=== PATIENT | female | born 1945 | race Hispanic/Latino ===

== ENCOUNTER 2017-06-07 13:31 | Emergency (ER) | payer MEDICARE ==
[2017-06-07 13:31] VITALS: BMI 29.0
[2017-06-07 13:41] VITALS: TEMP 97.8; O2SAT 97
[2017-06-07] MEDS ORDERED: DiphenhydrAMINE 50 mg/ml Inj IVP STA (13:43)
--- NOTE | 2017-06-07 14:11 | ED PDOC ---
Arrival/HPI - History of Present Illness Time/Duration: 1 hour Symptom Onset: Sudden Symptom Course: Unchanged Quality: Fullness Severity Level: 5 Activities at Onset: Rest Context: Sitting <Minor Dumont - Last Filed: 06/07/17 16:43> - General Historian: Patient <Pedro Parker - Last Filed: 06/07/17 17:26> - General Chief Complaint: Allergic Reaction Time Seen by Provider: 06/07/17 13:36 - History of Present Illness Narrative History of Present Illness (Text): 06/07/17 14:07 This is a 72 year old female with a significant past medical history of hypertension who comes to [facility] complaining of an allergic reaction. Per the patient, she reports sitting at a table when her hands began feeling itchy and burning which then moved to the feet and finally she began having difficulty swallowing. She reports taking Benadryl at home with slight relief in symptoms. Per the patient she contacted her PMD Dr. Granados who advised her to come into the Emergency Room for further treatment. She denies any fevers, chills, nausea, vomiting, chest pain, shortness of breath, stomach pain, syncopal episodes or any other complaints. (Minor Dumont) Past Medical History - Provider Review Nursing Documentation Reviewed: Yes - Infectious Disease Hx of Infectious Diseases: None - Reproductive Menopause: Yes - Cardiac Hx Hypertension: Yes - Neurological Hx Neurological Disorder: (bells palsey) - Integumentary Hx Psoriasis: Yes (left heel) - Musculoskeletal/Rheumatological Hx Falls: No - Gastrointestinal Hx Gastroesophageal Reflux: Yes - Psychiatric Hx Depression: No Hx Emotional Abuse: No Hx Physical Abuse: No Hx Substance Use: No - Surgical History Hx Cardiac Catheterization: Yes Hx Hysterectomy: Yes Other/Comment: vocal cord polyp removed, lower back sx titanium rods implanted L4 L5 S1 2010, 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, 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 - Anesthesia Hx Anesthesia: No - Suicidal Assessment Feels Threatened In Home Enviroment: No <Minor Dumont - Last Filed: 06/07/17 16:43> Family/Social History - Physician Review Nursing Documentation Reviewed: Yes Smoking Status: Heavy Smoker > 10 Cigarettes Daily Hx Alcohol Use: No Hx Substance Use: No <Minor Dumont - Last Filed: 06/07/17 16:43> Family/Social History: No Known Family HX <Pedro Parker - Last Filed: 06/07/17 17:26> Allergies/Home Meds <Minor Dumont - Last Filed: 06/07/17 16:43> <Pedro Parker - Last Filed: 06/07/17 17:26> Allergies/Adverse Reactions: Allergies No Known Allergies Allergy (Verified 07/06/14 14:00) Home Medications: Home Meds Medication Instructions Recorded Confirmed Aspirin [Ecotrin] 81 mg PO DAILY 06/07/17 06/07/17 Metoprolol Tartrate [Lopressor] 100 mg PO DAILY 06/07/17 06/07/17 Review of Systems - Physician Review All systems were reviewed & negative as marked: Yes - Review of Systems Constitutional: Normal. absent: Fevers, Night Sweats Eyes: Normal. absent: Photophobia, Eye Pain ENT: Other (complains of difficulty swallowing). absent: Normal, Hearing Changes, Tinnitus Respiratory: Normal. absent: SOB, Cough, Wheezing Cardiovascular: Normal. absent: Chest Pain, Palpitations Gastrointestinal: Normal. absent: Abdominal Pain, Stool Changes, Constipation, Diarrhea, Nausea, Vomiting Genitourinary Female: Normal. absent: Frequency, Hematuria Skin: Normal. absent: Skin Lesions, Laceration Neurological: Normal. absent: Headache, Dizziness Endocrine: Normal. absent: Polyuria, Polydipsia Hemo/Lymphatic: Normal. absent: Easy Bleeding, Easy Bruising <Minor Dumont - Last Filed: 06/07/17 16:43> Physical Exam Vital Signs Reviewed: Yes Temperature: Afebrile Blood Pressure: Normal Pulse: Regular Respiratory Rate: Normal Appearance: Positive for: Well-Appearing, Non-Toxic, Comfortable Pain Distress: Mild Mental Status: Positive for: Alert and Oriented X 3 - Systems Exam Head: Present: Atraumatic, Normocephalic Pupils: Present: PERRL. No: Non-Reactive Extroacular Muscles: Present: EOMI. No: Gaze Palsy Conjunctiva: Present: Normal. No: Injected Mouth: Present: Moist Mucous Membranes. No: Drooling, Trismus Pharnyx: Present: Normal. No: EXUDATE, Uvular Deviation, Soft Palate/Uvular Edema Neck: Present: Normal Range of Motion. No: JVD, Lymphadenopathy Respiratory/Chest: Present: Clear to Auscultation, Good Air Exchange. No: Respiratory Distress, Accessory Muscle Use, Decreased Breath Sounds Cardiovascular: Present: Regular Rate and Rhythm, Normal S1, S2. No: Murmurs, Tachycardic, Bradycardic Abdomen: Present: Normal Bowel Sounds. No: Tenderness, Distention Upper Extremity: Present: Normal Inspection. No: Swelling, Erythema Lower Extremity: Present: Normal Inspection, Normal ROM. No: Edema, Cyanosis Neurological: Present: CN II-XII Intact, Speech Normal Skin: Present: Dry, Normal Color. No: Rashes, Laceration, Abscess Psychiatric: Present: Alert, Oriented x 3, Normal Insight, Normal Concentration <Minor Dumont - Last Filed: 06/07/17 16:43> Medical Decision Making <Minor Dumont - Last Filed: 06/07/17 16:43> <Pedro Parker - Last Filed: 06/07/17 17:26> ED Course and Treatment: 06/07/17 14:17 Patient was brought to [facility] complaining of an allergic reaction. Patient was given Benadryl, Pepcid and IV steroids. Patient will be re-evaluated afterwards. Patient reports feeling better after the medications. Patient will be monitored further since she initially complained of difficulty swallowing. (Minor Dumont) 06/07/17 15:05 Patient Seen With Resident: In agreement with resident note which contains more details about the patient. Patient was seen and evaluated with resident. Came up with plan and treatment together. 06/07/17 17:22 Patient upon evaluation with no obvious findings, yet symptoms of pruritis and swelling and sensation in throat are very consistent with allergic reaction; no clear source. She was given pepcid, benadryl, and solumedrol, with full resolution of symptoms and observed here in the emergency department. No airway swelling or abnormality was noted in the emergency department with normal clear airway. Will d/c on steroids and atarax, and she said she will follow up with her pmd tomorrow. (Pedro Parker) - Medication Orders Current Medication Orders: Discontinued Medications Diphenhydramine HCl (Benadryl) 25 mg IVP STAT STA Stop: 06/07/17 13:44 Last Admin: 06/07/17 13:58 Dose: 25 mg Famotidine (Pepcid) 20 mg IVP STAT STA Stop: 06/07/17 13:44 Last Admin: 06/07/17 13:58 Dose: 20 mg Methylprednisolone (Solu-Medrol) 125 mg IVP STAT STA Stop: 06/07/17 13:44 Last Admin: 06/07/17 13:58 Dose: 125 mg <Minor Dumont - Last Filed: 06/07/17 16:43> - PA / [employer] / Resident Statement MD/DO has reviewed & agrees with the documentation as recorded. MD/DO has examined the patient and agrees with the treatment plan. - Scribe Statement The provider has reviewed the documentation as recorded by the Scribe <Pedro Parker - Last Filed: 06/07/17 17:26> - Scribe Statement Carolynn De Jesus Provider Scribe Attestation: All medical record entries made by the Scribe were at my direction and personally dictated by me. I have reviewed the chart and agree that the record accurately reflects my personal performance of the history, physical exam, medical decision making, and the department course for this patient. I have also personally directed, reviewed, and agree with the discharge instructions and disposition. (Pedro Parker) Disposition/Present on Arrival - Present on Arrival Any Indicators Present on Arrival: No History of DVT/PE: No History of Uncontrolled Diabetes: No Urinary Catheter: No History of Decub. Ulcer: No History Surgical Site Infection Following: None - Disposition Have Diagnosis and Disposition been Completed?: Yes <Minor Dumont - Last Filed: 06/07/17 16:43> - Present on Arrival Any Indicators Present on Arrival: No - Disposition Have Diagnosis and Disposition been Completed?: Yes Disposition Time: 17:20 Patient Plan: Discharge <Pedro Parker - Last Filed: 06/07/17 17:26> - Disposition Diagnosis: Allergic reaction Disposition: HOME/ ROUTINE Patient Problems: Current Active Problems Problem Status Onset Allergic reaction Acute Condition: GOOD Discharge Instructions (ExitCare): General Allergic Reaction (ED) Additional Instructions: Take the medications as prescribed. The next dose of prednisone is tomorrow morning. Take the atarax every 8 hours; the next dose should be this evening. Follow up with Dr. Rafy Arias and recommend general production worker referral. Return to the emergency department if any new concerning symptoms. Prescriptions: hydrOXYzine HCl [Atarax] 1 tab PO Q8H #16 tab predniSONE [Prednisone] 2 tab PO DAILY #8 tab Referrals: PCP,NO [Primary Care Provider] - Follow up with primary Forms: [facility] (Salvadorean)
[2017-06-07 16:47] VITALS: BP 135/89; PULSE 63; RESP 18
== END 2017-06-07 17:29 | disposition home or self-care (01) ==
LOC: ED 13:31
DX: T78.49XA Other allergy, initial encounter (principal); X58.XXXA Exposure to other specified factors, initial encounter
CPT/HCPCS: 96374; 96375; 99284; J1200; J2930

== ENCOUNTER 2017-07-07 11:34 | Observation (INO) | payer MEDICARE ==
[2017-07-07 11:51] VITALS: BMI 31.8
--- NOTE | 2017-07-07 12:02 | ED PDOC ---
Arrival/HPI - General Historian: Patient - History of Present Illness Time/Duration: < month (3 weeks) Symptom Onset: Gradual Symptom Course: Worsening Quality: Tightness Severity Level: 7 Activities at Onset: Rest Context: Home <Nemo Lund - Last Filed: 07/07/17 13:24> <Pablito Partick - Last Filed: 07/07/17 14:15> - General Chief Complaint: Shortness Of Breath Time Seen by Provider: 07/07/17 11:38 - History of Present Illness Narrative History of Present Illness (Text): 07/07/17 12:10 This is a 72Y F with PMH of HTN and COPD who came to ED for SOB x 3 weeks. The SOB has been worsening the past few days. The patient reports having cough with green sputum and subjective fevers. She denies CP, sore throat, or facial pain, numbness/tingling, vomiting or diarrhea or recent travel. She gets nauseous when she coughs. She was seen by her PMD, Dr. Arias who give her a course of Prednisone 50mg x 3 weeks. He also gave her antibiotics for 2 weeks which include Levaquin and another medication she can't remember. She used Albuterol inhaler which did not provide any relief. The SOB is worse with activity. Her was sick prior to this and she believes she got sick from him. The patient called her PMD who told her to come to the ED. 07/07/17 12:17 (Nemo Lund) Past Medical History - Provider Review Nursing Documentation Reviewed: Yes - Travel History Have you recently traveled outside [place] w/in the past 3 mons?: No - Infectious Disease Hx of Infectious Diseases: None - Cardiac Hx Hypertension: Yes - Pulmonary Hx Chronic Obstructive Pulmonary Disease (COPD): Yes - Neurological Hx Neurological Disorder: (bells palsey) - Integumentary Hx Psoriasis: Yes (left heel) - Musculoskeletal/Rheumatological Hx Falls: No - Gastrointestinal Hx Gastroesophageal Reflux: Yes - Psychiatric Hx Depression: No Hx Emotional Abuse: No Hx Physical Abuse: No Hx Substance Use: No - Surgical History Hx Cardiac Catheterization: Yes Hx Hysterectomy: Yes Other/Comment: vocal cord polyp removed, lower back sx titanium rods implanted L4 L5 S1 2010, 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 denies: Blood Clots, Neoplasm/Cancer Smoking Status: Heavy Smoker > 10 Cigarettes Daily Hx Alcohol Use: No Hx Substance Use: No <BenNemo rowe - Last Filed: 07/07/17 13:24> Allergies/Home Meds <Nemo Lund - Last Filed: 07/07/17 13:24> <Pablito Patrick - Last Filed: 07/07/17 14:15> Allergies/Adverse Reactions: Allergies No Known Allergies Allergy (Verified 07/06/14 14:00) Home Medications: Home Meds Medication Instructions Recorded Confirmed Aspirin [Ecotrin] 81 mg PO DAILY 06/07/17 07/07/17 Metoprolol Tartrate [Lopressor] 100 mg PO DAILY 06/07/17 07/07/17 Albuterol 0.083% [Albuterol 0.083% 1 vial IH Q4H PRN 07/07/17 07/07/17 Inhal Rakel (2.5 mg/3 ml) UD] Review of Systems - Physician Review All systems were reviewed & negative as marked: Yes - Review of Systems Constitutional: Fevers Eyes: Normal. absent: Vision Changes ENT: Normal. absent: Hearing Changes Respiratory: SOB, Cough, Sputum (greeb), Wheezing Cardiovascular: Normal. absent: Chest Pain, Palpitations, Edema Gastrointestinal: Nausea (when coughing ). absent: Abdominal Pain, Diarrhea, Vomiting Genitourinary Female: Normal. absent: Dysuria, Frequency Musculoskeletal: Normal. absent: Arthralgias Skin: Normal Neurological: Normal. absent: Headache, Dizziness Psychiatric: Normal. absent: Anxiety, Depression <Nemo Lund - Last Filed: 07/07/17 13:24> Physical Exam Vital Signs Reviewed: Yes Temperature: Afebrile Blood Pressure: Normal Pulse: Regular Respiratory Rate: Tachypneic Appearance: Positive for: Well-Appearing, Non-Toxic, Comfortable Pain Distress: None Mental Status: Positive for: Alert and Oriented X 3 - Systems Exam Head: Present: Atraumatic, Normocephalic Pupils: Present: PERRL Extroacular Muscles: Present: EOMI Conjunctiva: Present: Normal Mouth: Present: Moist Mucous Membranes Neck: Present: Normal Range of Motion Respiratory/Chest: Present: Good Air Exchange, Wheezes (diffuse). No: Respiratory Distress, Accessory Muscle Use Cardiovascular: Present: Regular Rate and Rhythm, Normal S1, S2. No: Murmurs Abdomen: Present: Normal Bowel Sounds. No: Tenderness, Distention, Peritoneal Signs Back: Present: Normal Inspection Upper Extremity: Present: Normal Inspection. No: Cyanosis, Edema Lower Extremity: Present: Normal Inspection. No: Edema Neurological: Present: GCS=15, CN II-XII Intact, Speech Normal Skin: Present: Warm, Dry, Normal Color. No: Rashes Psychiatric: Present: Alert, Oriented x 3, Normal Insight, Normal Concentration <Nemo Lund - Last Filed: 07/07/17 13:24> <Pablito Patrick - Last Filed: 07/07/17 14:15> Vital Signs Temp Pulse Resp BP Pulse Ox 07/07/17 12:08 24 95 07/07/17 11:54 98.2 F 82 22 123/68 95 Medical Decision Making Re-evaluation Time: 12:53 Reassessment Condition: Improved - Lab Interpretations I have reviewed the lab results: Yes Interpretation: All labs normal <Nemo Lund - Last Filed: 07/07/17 13:24> <Pablito Patrick T - Last Filed: 07/07/17 14:15> ED Course and Treatment: 07/07/17 12:16 Impression: This is a 72Y F with PMH of HTN and COPD who came to ED for SOB x 3 weeks. Differential Diagnosis included but are not limited to: COPD exacerbation v. pneumonia Plan: - EKG - CXR - Duoneb - Solumedrol - Reassess and disposition EKG: Ordered, reviewed, and independently interpreted the EKG. Rate : 81 BPM Rhythm : NSR Interpretation : No ST-segment elevations or depressions, no T-wave inversions, normal intervals. Comparison : Similar to previous EKG Progress Note: 07/07/17 12:54 Patient reports feeling better, but still has cough and wheezing. Labs are within normal limits. CXR showed no active disease. Called PMD, Dr. Arias for admission. Awaiting call back. 07/07/17 13:[address] Arias who accepted the patient into his service. Discussed results and plan to admit with patient who expresses understanding. All questions answered and there is agreement with the plan. (Nemo Lund) 07/07/17 13:12 Patient Seen With Resident: In agreement with resident note which contains more details about the patient. Patient was seen and evaluated with resident. Came up with plan and treatment together. 72 y/o F p/w shortness of breath. Wheezing on exam. (Pablito Patrick) - Lab Interpretations Lab Results: 07/07/17 12:04 07/07/17 12:04 Lab Results 07/07/17 12:04: Sodium 144, Potassium 4.1, Chloride 109 H, Carbon Dioxide 25, Anion Gap 14, BUN 16, Creatinine 0.6, Est GFR ( Amer) > 60, Est GFR (Non- Af Amer) > 60, Random Glucose 92, Calcium 9.0, Total Bilirubin 0.6, AST 23, ALT 29, Alkaline Phosphatase 100, Total Protein 6.4, Albumin 3.8, Globulin 2.6, Albumin/Globulin Ratio 1.5 07/07/17 12:04: WBC 8.8 D, RBC 4.91, Hgb 14.9, Hct 43.6, MCV 88.8, MCH 30.3, MCHC 34.2, RDW 13.5, Plt Count 290, MPV 9.1, Gran % 85.2 H, Lymph % (Auto) 8.4 L , Stevens % (Auto) 5.1, Eos % (Auto) 1.1 L, Baso % (Auto) 0.2, Gran # 7.47 H, Lymph # 0.7 L, Stevens # 0.5, Eos # 0.1, Baso # 0.02 - RAD Interpretation Radiology Orders: 07/07/17 11:55 CHEST TWO VIEWS (PA/LAT) [RAD] Stat - Medication Orders Current Medication Orders: Albuterol/Ipratropium (Duoneb 3 Mg/0.5 Mg (3 Ml) Ud) 3 ml IH Q2H PRN PRN Reason: Shortness of Breath Stop: 07/07/17 17:46 Albuterol/Ipratropium (Duoneb 3 Mg/0.5 Mg (3 Ml) Ud) 3 ml IH Q4H JOSEPH Budesonide (Pulmicort Respules) 0.25 mg IH [id number] JOSEPH Doxycycline Hyclate (Doryx) 100 mg PO BID JOSEPH PRN Reason: Protocol Methylprednisolone (Solu-Medrol) 60 mg IVP Q12 JOSEPH Metoprolol Succinate (Toprol Xl) 100 mg PO BRK JOSEPH Discontinued Medications Albuterol/Ipratropium (Duoneb 3 Mg/0.5 Mg (3 Ml) Ud) 3 ml IH Q15M JOSEPH Stop: 07/07/17 12:31 Last Admin: 07/07/17 13:34 Dose: 3 ml Methylprednisolone (Solu-Medrol) 125 mg IVP STAT STA Stop: 07/07/17 11:56 Last Admin: 07/07/17 12:07 Dose: 125 mg Methylprednisolone (Solu-Medrol) Confirm Administered Dose 125 mg .ROUTE .STK- MED ONE Stop: 07/07/17 12:04 Last Admin: 07/07/17 12:07 Dose: <Nemo Lund - Last Filed: 07/07/17 13:24> - Scribe Statement The provider has reviewed the documentation as recorded by the Scribe <Pablito Patrick - Last Filed: 07/07/17 14:15> - Scribe Statement Carolynn De Jesus Provider Scribe Attestation: All medical record entries made by the Scribe were at my direction and personally dictated by me. I have reviewed the chart and agree that the record accurately reflects my personal performance of the history, physical exam, medical decision making, and the department course for this patient. I have also personally directed, reviewed, and agree with the discharge instructions and disposition. (Pablito Patrick) Disposition/Present on Arrival - Present on Arrival Any Indicators Present on Arrival: No History of DVT/PE: No History of Uncontrolled Diabetes: No Urinary Catheter: No History of Decub. Ulcer: No History Surgical Site Infection Following: None - Disposition Have Diagnosis and Disposition been Completed?: Yes Disposition Time: 12:54 Patient Plan: Admission <Nemo Lund - Last Filed: 07/07/17 13:24> <Pablito Patrick - Last Filed: 07/07/17 14:15> - Disposition Diagnosis: COPD exacerbation Patient Problems: Current Active Problems Problem Status Onset COPD exacerbation Acute Condition: FAIR
[2017-07-07 12:28] LABS: ALB/GLOB RATIO 1.5 (1.1-1.8); ALKALINE PHOSPHATASE 100 U/L (38-126); ALT/SGPT 29 U/L (7-56); AST/SGOT 23 U/L (14-36); BASO # 0.02 K/mm3 (0.0-2.0); BASO % 0.2 % (0.0-3.0); BILIRUBIN,TOTAL 0.6 mg/dL (0.2-1.3); BLOOD UREA NITROGEN 16 mg/dL (7-21); CARBON DIOXIDE 25 mmol/L (21-33); CHLORIDE 109 mmol/L (98-107); EOS # 0.1 (0.0-0.7); EOS % 1.1 % (1.5-5.0); GFR AFRICAN-AMERICAN > 60; GLUCOSE,RANDOM 92 mg/dL (70-110); GRAN # 7.47 (1.4-6.5); GRAN % 85.2 % (50.0-68.0); HEMATOCRIT 43.6 % (36.0-48.0); LYMPH # 0.7 (1.2-3.4); LYMPH % 8.4 % (22.0-35.0); MEAN CELL VOLUME 88.8 fl (80.0-105.0); MEAN CORPUSCULAR HEMOGLOBIN 30.3 pg (25.0-35.0); MEAN CORPUSCULAR HGB CONC 34.2 g/dl (31.0-37.0); MEAN PLATELET VOLUME 9.1 fl (7.0-11.0); MONO # 0.5 (0.1-0.6); MONO % 5.1 % (1.0-6.0); POTASSIUM 4.1 mmol/L (3.6-5.0); RED CELL DISTRIBUTION WIDTH 13.5 % (11.5-14.5); SODIUM 144 mmol/L (132-148); TOTAL PROTEIN 6.4 g/dL (5.8-8.3); WHITE BLOOD COUNT 8.8 10^3/ul (4.5-11.0)
[2017-07-07] MEDS: Albuterol-Ipratrop 3 mg / 0.5 (3 ml) UD IH SCH ×5 (12:36→19:49)
--- NOTE | 2017-07-07 13:15 | RAD ---
HISTORY: SOB COMPARISON: 07/06/2014 TECHNIQUE: Chest PA and lateral FINDINGS: LUNGS: No active pulmonary disease. PLEURA: No significant pleural effusion identified. No pneumothorax apparent. CARDIOVASCULAR: Normal. OSSEOUS STRUCTURES: No significant abnormalities. VISUALIZED UPPER ABDOMEN: Normal. OTHER FINDINGS: None. IMPRESSION: No active disease.
[2017-07-07] MEDS ORDERED: Albuterol-Ipratrop 3 mg / 0.5 (3 ml) UD IH PRN (13:32)
[2017-07-07] MEDS ORDERED: Pneumococcal 23-Valent Vaccine IM ONE (18:55)
[2017-07-07] MEDS ORDERED: Budesonide 0.25 mg/2 ml Inhal Susp UD IH SCH (20:00)
[2017-07-08] MEDS: Albuterol-Ipratrop 3 mg / 0.5 (3 ml) UD IH SCH ×6 (00:25→20:18)
[2017-07-08] MEDS: Pantoprazole 40 mg EC Tab PO SCH (05:36)
[2017-07-08 07:28] LABS: BASO # 0.01 K/mm3 (0.0-2.0); BASO % 0.1 % (0.0-3.0); GRAN # 13.09 (1.4-6.5); GRAN % 90.8 % (50.0-68.0); HEMATOCRIT 40.7 % (36.0-48.0); LYMPH # 0.9 (1.2-3.4); LYMPH % 6.2 % (22.0-35.0); MEAN CELL VOLUME 88.3 fl (80.0-105.0); MEAN CORPUSCULAR HEMOGLOBIN 29.5 pg (25.0-35.0); MEAN CORPUSCULAR HGB CONC 33.4 g/dl (31.0-37.0); MEAN PLATELET VOLUME 9.2 fl (7.0-11.0); MONO # 0.4 (0.1-0.6); MONO % 2.9 % (1.0-6.0); PLATELET COUNT 273 10^3/uL (120.0-450.0); RED CELL DISTRIBUTION WIDTH 13.7 % (11.5-14.5); WHITE BLOOD COUNT 14.4 10^3/ul (4.5-11.0)
[2017-07-08 07:42] LABS: ALB/GLOB RATIO 1.3 (1.1-1.8); ALKALINE PHOSPHATASE 84 U/L (38-126); ALT/SGPT 27 U/L (7-56); AST/SGOT 21 U/L (14-36); BILIRUBIN,TOTAL 0.6 mg/dL (0.2-1.3); CALCIUM 9.2 mg/dL (8.4-10.5); CARBON DIOXIDE 23 mmol/L (21-33); CHLORIDE 106 mmol/L (95-110); GFR AFRICAN-AMERICAN > 60; GLUCOSE,RANDOM 182 mg/dL (70-110); POTASSIUM 4.3 mmol/L (3.6-5.0); SODIUM 139 mmol/L (132-148); TOTAL PROTEIN 6.3 g/dL (5.8-8.3)
[2017-07-08] MEDS: Budesonide 0.5 mg/2 ml Inhal Susp UD IH SCH ×2 (07:57→20:18)
[2017-07-08] MEDS ORDERED: Metoprolol Succinate 100 mg XL Tab PO SCH (08:00)
[2017-07-08 08:10] LABS: BLOOD UREA NITROGEN 22 mg/dL (7-21)
--- NOTE | 2017-07-08 08:57 | CARD ---
APPROVED REPORT EKG Measurement Heart [id number] <Conclusion> Normal sinus rhythm
[2017-07-08] MEDS: MethylPREDNISolone 40 mg Vial IVP SCH ×2 (10:49→21:35)
[2017-07-08 10:51] LABS: NEUTROPHIL 93 % (50.0-70.0); PLATELET ESTIMATE NORMAL (NORMAL)
--- NOTE | 2017-07-08 11:56 | PN ---
DATE: SUBJECTIVE: The patient is sitting up in bed, having breakfast. She states her shortness of breath has improved overnight. There have been no acute events overnight. PHYSICAL EXAMINATION: VITAL SIGNS: Temperature of 98.4, pulse rate of 84, blood pressure 129/73, respiratory rate of 22 with an O2 saturation of 95% on room air. HEENT: Unremarkable. NECK: Supple. There is no jugular venous distention or adenopathy. No bruits are present. LUNGS: Scattered rhonchi, very mild throughout both lung prince with a slight wheeze. HEART: Regular rate and rhythm. No murmurs, rubs, or gallops. ABDOMEN: Benign. EXTREMITIES: Show no deformities or edema. NEUROLOGIC: There are no focal motor deficits. LABORATORY DATA: This morning; WBC of 14.4 that is most likely steroid effect. There is a left shift. SMA-23 with the exception of BUN of 22 and random glucose of 182 is unremarkable. CURRENT DIAGNOSES: 1. Acute exacerbation of chronic obstructive pulmonary disease. 2. Hypertension. PLAN: Continue current regimen. Jj Arias MD
--- NOTE | 2017-07-08 16:46 | CON ---
DATE: 07/08/2017 PULMONARY CONSULTATION REASON FOR CONSULTATION: Chronic obstructive pulmonary disease. REFERRING PHYSICIAN: Alexis Arias MD HISTORY OF PRESENT ILLNESS: The patient is a 72-year-old female, with past medical history significant for chronic obstructive pulmonary disease, positive extensive smoking history - still smokes, hypertension, who presents to [facility] with worsening shortness of breath at rest, dyspnea on exertion, cough, and sputum production for the past three days. There is no history of chest pain, coughing up of blood, or chest pain - made worse with deep respirations. There is no history of temperatures or chills. There is a history of infectious exposure (). No history of night sweats, weight loss or appetite change prior to the above events. No history of leg or calf pains. No history of syncope or diaphoresis. No history of recent travel or trauma. REVIEW OF SYSTEMS: No history of nausea, vomiting or diarrhea. No acute urinary symptoms. No new neurologic or musculoskeletal complaints. Rest of the review of systems is negative. ALLERGIES: NO KNOWN ALLERGIES. SOCIAL HISTORY: Positive for extensive tobacco usage - still smokes, no alcohol. FAMILY HISTORY: No inheritable diseases. HOME MEDICATIONS: Include prednisone, Atarax, Lopressor, Ecotrin, and albuterol nebulizer treatments. PHYSICAL EXAMINATION: GENERAL: The patient is not short of breath at rest. She is not using accessory muscles for breathing. VITAL SIGNS: Temperature is 97.7, pulse 86, respiration is 18/20, and blood pressure 123/61. Oxygen saturation on room air is 95%. HEENT: Normocephalic and atraumatic. No JVD. CARDIOVASCULAR: Positive S1 and S2. No S3 gallop. LUNGS: Decreased breath sounds at the bases. Mild rhonchi and wheezing bilaterally. EXTREMITIES: No clubbing, cyanosis or edema. Calves are nontender to palpation. GASTROINTESTINAL: Abdomen is soft, nontender, nondistended. Bowel sounds are positive. SKIN: No acute rash. NEUROLOGIC: Limited at the present time. PERTINENT LABORATORY DATA: Chest x-ray was done yesterday and reviewed. There is no active disease present. CBC: White count 8.8K, hemoglobin 14.9, hematocrit 43.6, and platelets of 290. Complete metabolic profile: Chloride 109. Rest of the metabolic profile is within normal limits. IMPRESSION: 1. Acute bronchitis. 2. Acute bronchospasm. 3. Chronic obstructive pulmonary disease. 4. Hypertension. PLAN: The patient presents to [facility] with a 3-day history of worsening pulmonary symptoms. The patient actually states that the symptoms have been going "on and off" for the past three weeks, but got much worse over the past three days. She was presented to [facility] for admission. I did review the chest x-ray as above. There is no active disease present. On physical exam, the patient is in [id number] bronchospasm. I will continue with the current DuoNeb treatments and increase the inhaled Pulmicort. The patient does feel significantly better this morning. Thus,I will also try decreasing the intravenous steroids this morning. The patient also remains on oral antibiotic therapy. There are no temperatures noted. There is no leukocytosis. Again, the clinical status of this patient is improved this morning. Additional pulmonary intervention will be based on the clinical status of the patient. I will discuss the above with Dr. Arias this morning. I also discussed the patient's smoking with her at length. Thank you very much for this pulmonary consultation. Praneeth Richards MD MTDDaphney
[2017-07-08 17:49] VITALS: RESP 20
[2017-07-08] MEDS ORDERED: Benzocaine/Menthol (Cepacol) Lozenge MT PRN (18:14)
[2017-07-09] MEDS: Albuterol-Ipratrop 3 mg / 0.5 (3 ml) UD IH SCH ×2 (01:04→07:42)
[2017-07-09] MEDS: Pantoprazole 40 mg EC Tab PO SCH (05:31)
--- NOTE | 2017-07-09 07:19 | PN ---
SUBJECTIVE: The patient appears comfortable this morning. She is not short of breath at rest. PHYSICAL EXAMINATION VITAL SIGNS: Temperature 98.3, pulse 78, respirations 18, blood pressure 154/70. Oxygen saturation on room air is 95%. HEENT: Normocephalic and atraumatic. NECK: No JVD. CARDIOVASCULAR: Positive S1 and S2. No S3. LUNGS: Improved breath sounds at the bases. Much less rhonchi and wheezing bilaterally. EXTREMITIES: No clubbing, cyanosis, or edema. Calves are nontender to palpation. GASTROINTESTINAL: Abdomen is soft, nontender, and nondistended. Bowel sounds are positive. SKIN: No acute rash. NEUROLOGIC: Limited at the present time. IMPRESSION: 1. Acute bronchitis. 2. Acute bronchospasm. 3. Chronic obstructive pulmonary disease. 4. Hypertension. PLAN: The patient appears comfortable this morning. She is not short of breath at rest. Her cough is less. She does state that she is feeling much better overall. On physical exam, her bronchospasm is significantly less. In addition, the oxygen saturation on room air is now 95-96%. I will continue with the current nebulizer treatments and decrease the intravenous steroids this morning. The patient remains on antibiotic therapy. There are no temperatures noted. There is a mild leukocytosis (noted on the last labs)--most likely secondary to the steroids. The initial white count was normal. Clinical status of the patient is significantly improved. I will discuss the above with the attending physician. Praneeth Richards MD MTDD
[2017-07-09] MEDS: Budesonide 0.5 mg/2 ml Inhal Susp UD IH SCH (07:42)
[2017-07-09 09:11] VITALS: BP 137/72; PULSE 63; TEMP 97.7; O2SAT 95
[2017-07-09] MEDS ORDERED: MethylPREDNISolone 40 mg Vial IVP SCH (10:00)
--- NOTE | 2017-07-11 08:36 | PN ---
SUBJECTIVE: The patient was seen and examined at bedside on the general medical ortez. No acute events overnight. She remains afebrile and hemodynamically stable. The patient reports resolution of her pulmonary symptoms associated with her presentation to the emergency department with a COPD exacerbation. This morning she states she feels great, denies chest tightness, dyspnea or wheeze and states that she is ambulating around the medical ortez without difficulty. Furthermore she states that she would like to go home. OBJECTIVE: VITAL SIGNS: Temperature 98.3, pulse 78, blood pressure 154/70, respiratory rate 20, and oxygen saturation 95% on room air. GENERAL: No apparent distress. HEENT: PERRL. EOMI. No scleral icterus. No conjunctival pallor. NECK: No JVD. No bruits. LUNGS: Clear to auscultation. CARDIOVASCULAR: Regular rate and rhythm. Normal S1 and S2. ABDOMEN: Normoactive bowel sounds. Soft, nontender, and nondistended. EXTREMITIES: No edema. NEUROLOGIC: Awake, alert, and oriented x3. No focal motor deficits. LABORATORY DATA: Morning labs are pending. ASSESSMENT: The patient is a 72-year-old woman with past medical history of COPD, tobacco dependence and HTN who presented to [facility] for continued management of COPD exacerbation whose symptoms have presently resolved. PLAN: 1. COPD exacerbation, resolved. Input from Dr. Richards of pulmonary critical care medicine noted and appreciated. The patient has demonstrated significant improvement in her respiratory symptoms since admission and this morning reports being at her baseline. We will discharge the patient to home and will complete a steroid taper as well as a 7-day course of antibiotics. 2. Hypertension. Blood pressure controlled. Continue with Toprol-XL 100 mg p.o. daily. 3. Prophylaxis. Continue with Protonix for GI prophylaxis, DVT prophylaxis not indicated, as the patient is eating. 4. Disposition. The patient for discharge to home today. CODE STATUS: Full code. Alexis Arias MD ABILIO
--- NOTE | 2017-07-12 05:33 | DS ---
DATE OF ADMISSION: 07/07/2017 DATE OF DISCHARGE: 07/09/2017 ADMITTING DIAGNOSIS: Chronic obstructive pulmonary disease exacerbation. DISCHARGE DIAGNOSIS: Chronic obstructive pulmonary disease exacerbation (resolved). SECONDARY DIAGNOSES: Hypertension and tobacco dependence. CONSULTATIONS: Dr. Praneeth Richards (Pulmonary and Critical Care Medicine). IMAGING STUDIES: Chest x-ray, which demonstrated no acute pathology. HISTORY OF PRESENT ILLNESS: The patient is a 72-year-old woman with past medical history of COPD with active tobacco dependence and hypertension, who presented to [facility] for evaluation of a 2-week history of worsening dyspnea, wheeze, and malaise. The patient was initially seen in her PMD's office for approximately 2 weeks ago for evaluation of the aforementioned symptoms. She was diagnosed with bronchitis and given a prescription for Levaquin 500 mg p.o. daily x7 days and Prednisone 50 mg p.o. daily x7 days. The patient completed her course of antibiotics and steroids with minimal improvement in her symptoms. Upon reexamination, she was advised that she may likely require inpatient treatment; however, initially she declined and as such she was prescribed a second course of antibiotics consisting of azithromycin 500 mg p.o. daily and Prednisone 50 mg p.o. daily both for 7 days. The patient went to fill her prescriptions, but later that day she developed increased dyspnea with increased work of breathing and as such adapted for evaluation in the emergency department. HOSPITAL COURSE: After evaluation in the emergency department, the patient was admitted to the general medical ortez, where she was maintained on Solu-Medrol 60 mg IV q. 12 hours and doxycycline 100 mg p.o. b.i.d. Over the following 24 to 36 hours, she was noted to have significant improvement in her respiratory symptoms and on reexamination she was noted to be at her baseline respiratory status. She was ambulating around the medical ortez without difficulty. Her steroids were tapered for an additional day and on reassessment she was noted to demonstrate continued improvement and at this point in time, she was deemed stable for discharge to home. CONDITION: Good, improved. DISPOSITION: Home. DISCHARGE MEDICATIONS: Toprol XL 100 mg p.o. daily, Advair 250/50 mcg one puff q. 12 hours, Prednisone 50 mg p.o. daily times 7 days, and azithromycin 500 mg p.o. daily times 7 days. DISCHARGE INSTRUCTIONS: The patient was advised that she is in recurrence of her symptoms to present to her PMD or to the nearest emergency department immediately. FOLLOWUP: The patient is to follow up with her PMD within one week of discharge. The patient will follow up with Dr. Richards of pulmonary and critical care medicine as scheduled. Alexis Arias MD
== END 2017-07-09 12:22 | disposition home or self-care (01) ==
LOC: ED 11:34 → ERH 13:22 → 3RNO 15:17
PROVIDERS: ADMIT Student in an Organized Health Care Education/Training Program; ATTEND Student in an Organized Health Care Education/Training Program
DX: J44.0 Chronic obstructive pulmonary disease with (acute) lower respiratory infection (principal); J44.1 Chronic obstructive pulmonary disease with (acute) exacerbation; J20.9 Acute bronchitis, unspecified; I10 Essential (primary) hypertension; F17.200 Nicotine dependence, unspecified, uncomplicated; K21.9 Gastro-esophageal reflux disease without esophagitis; Z79.82 Long term (current) use of aspirin; Z79.899 Other long term (current) drug therapy; Z85.828 Personal history of other malignant neoplasm of skin; Z90.710 Acquired absence of both cervix and uterus; L40.9 Psoriasis, unspecified; R40.2412 Glasgow coma scale score 13-15, at arrival to emergency department; D72.828 Other elevated white blood cell count; T38.0X5A Adverse effect of glucocorticoids and synthetic analogues, initial encounter
CPT/HCPCS: 36415; 71020; 80053; 85025; 93005; 94640; 96374; 99284; G0378; J2920; J2930

== ENCOUNTER 2018-03-29 19:13 | Emergency (ER) | payer MEDICARE ==
[2018-03-29] MEDS ORDERED: DiphenhydrAMINE 50 mg/ml Inj IVP ONE (19:16)
[2018-03-29 19:17] VITALS: BMI 32.8
[2018-03-29] MEDS ORDERED: Albuterol-Ipratrop 3 mg / 0.5 (3 ml) UD IH STA (19:17)
[2018-03-29] MEDS ORDERED: Famotidine 20mg/50ml 20 MG/50 ML BAG IVPB STA (19:17)
[2018-03-29 19:26] VITALS: O2SAT 97
[2018-03-29 20:07] VITALS: BP 158/81; PULSE 81; RESP 20
--- NOTE | 2018-03-29 21:21 | ED PDOC ---
Arrival/HPI - General Chief Complaint: Allergic Reaction Time Seen by Provider: 03/29/18 19:16 Historian: Patient - History of Present Illness Narrative History of Present Illness (Text): 03/29/18 19:15 Karina Patricia is a 73 year old female, whose past medical history includes COPD and hypertension, who presents to the Emergency department complaining of an allergic reaction prior to arrival. Patient states she began experiencing tongue swelling, throat swelling, some shortness of breath, and diffuse pruritus prior to arrival. Patient is unsure what triggered the reaction. Patient denies any fever, chills, chest pain, nausea, vomiting, diarrhea, urinary symptoms, back pain, neck pain, headache, dizziness, or any other complaints. Symptom Onset: Gradual Symptom Course: Unchanged Activities at Onset: Light Context: Home Past Medical History - Provider Review Nursing Documentation Reviewed: Yes - Infectious Disease Hx of Infectious Diseases: None - Cardiac Hx Hypertension: Yes - Pulmonary Hx Chronic Obstructive Pulmonary Disease (COPD): Yes - Neurological Hx Neurological Disorder: (bells palsey) Hx Dizziness: Yes (vertigo dx last summer) - HEENT Hx HEENT Disorder: Yes Other/Comment: vocal cord polyp removed - Hematological/Oncological Hx Cancer: Yes (skin ca) - Integumentary Hx Basal Cell Carcinoma: Yes (arms/legs/shoulder) Hx Psoriasis: Yes (feet/season changes) Hx Squamous Cell Carcinoma: Yes (chest removed) - Musculoskeletal/Rheumatological Hx Falls: No - Gastrointestinal Hx Gastroesophageal Reflux: Yes - Psychiatric Hx Depression: No Hx Emotional Abuse: No Hx Physical Abuse: No Hx Substance Use: No - Surgical History Hx Cardiac Catheterization: Yes Hx Hysterectomy: Yes Other/Comment: vocal cord polyp removed, lower back sx titanium rods implanted L4 L5 S1 2010, 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, 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 - Anesthesia Hx Anesthesia: Yes Hx Anesthesia Reactions: No Hx Malignant Hyperthermia: No - Suicidal Assessment Feels Threatened In Home Enviroment: No Family/Social History - Physician Review Nursing Documentation Reviewed: Yes Family/Social History: Unknown Family HX Smoking Status: Light Smoker < 10 Cigarettes Daily Hx Alcohol Use: No Hx Substance Use: No Allergies/Home Meds Allergies/Adverse Reactions: Allergies No Known Allergies Allergy (Verified 07/06/14 14:00) Home Medications: Home Meds Medication Instructions Recorded Confirmed Aspirin [Ecotrin] 81 mg PO DAILY 06/07/17 07/07/17 Metoprolol Tartrate [Lopressor] 100 mg PO DAILY 06/07/17 07/07/17 Albuterol 0.083% [Albuterol 0.083% 1 vial IH Q4H PRN 07/07/17 07/07/17 Inhal Rakel (2.5 mg/3 ml) UD] Review of Systems - Physician Review All systems were reviewed & negative as marked: Yes - Review of Systems Constitutional: Normal. absent: Fevers Eyes: Normal ENT: Other (+tongue swelling) Respiratory: SOB. absent: Cough Cardiovascular: Normal. absent: Chest Pain Gastrointestinal: Normal. absent: Abdominal Pain, Nausea, Vomiting Genitourinary Female: Normal. absent: Dysuria, Frequency, Hematuria, Urine Output Changes Musculoskeletal: Normal. absent: Back Pain, Neck Pain Skin: Normal. absent: Rash Neurological: Normal. absent: Headache, Dizziness Endocrine: Normal Hemo/Lymphatic: Normal Psychiatric: Normal Physical Exam Vital Signs Reviewed: Yes Vital Signs Pulse Resp BP Pulse Ox 03/29/18 21:35 97 03/29/18 20:06 81 20 158/81 H 97 03/29/18 19:26 77 22 209/108 H 97 Temperature: Afebrile Blood Pressure: Hypertensive Pulse: Regular Respiratory Rate: Normal Appearance: Positive for: Well-Appearing, Non-Toxic, Comfortable Pain Distress: None Mental Status: Positive for: Alert and Oriented X 3 - Systems Exam Head: Present: Atraumatic, Normocephalic Pupils: Present: PERRL Extroacular Muscles: Present: EOMI Conjunctiva: Present: Normal Ears: Present: Normal, NORMAL TM, Normal Canal. No: Erythema, TM Bulging, Fluid , TM Perf Mouth: No: Normal Tounge (Swollen tongue) Pharnyx: Present: Normal. No: ERYTHEMA, EXUDATE, TONSILS ENLARGED, Peritonsilar Swelling, Uvular Deviation, Muffled/Hoarse Voice, Strider, Soft Palate/Uvular Edema Nose (External): Present: Atraumatic Nose (Internal): Present: Normal Inspection Neck: Present: Normal Range of Motion Respiratory/Chest: Present: Clear to Auscultation, Good Air Exchange. No: Respiratory Distress, Accessory Muscle Use Cardiovascular: Present: Regular Rate and Rhythm, Normal S1, S2. No: Murmurs Abdomen: No: Tenderness, Distention, Peritoneal Signs Back: Present: Normal Inspection. No: CVA Tenderness, Midline Tenderness, Paraspinal Tenderness Upper Extremity: Present: Normal Inspection. No: Cyanosis, Edema Lower Extremity: Present: Normal Inspection. No: Edema Neurological: Present: GCS=15, CN II-XII Intact, Speech Normal Skin: Present: Warm, Dry, Rashes, Normal Color Psychiatric: Present: Alert, Oriented x 3, Normal Insight, Normal Concentration Medical Decision Making ED Course and Treatment: 03/29/18 19:15 Impression: 73 year old female complaining of an allergic reaction with tongue swelling, throat swelling, and shortness of breath. Differential Diagnosis included but are not limited to: allergic reaction Plan: -- Benadryl -- Duoneb -- Pepcid -- Solu-medrol -- Reassess and disposition Prior Visits: Notes and results from previous visits were reviewed. Progress Notes: 03/29/18 21:35 On re-evaluation, patient feels better and is in no acute distress. I have discussed the results and plan with the patient, who expresses understanding. Patient in agreement with plan to be discharged home. Patient is stable for discharge. Patient was instructed to follow up with physician/clinic in 1-2 days or return if symptoms worsen or new concerning symptoms arise. - Medication Orders Current Medication Orders: Discontinued Medications Albuterol/Ipratropium (Duoneb 3 Mg/0.5 Mg (3 Ml) Ud) 3 ml IH STAT STA Stop: 03/29/18 19:18 Last Admin: 03/29/18 19:17 Dose: 3 ml Diphenhydramine HCl (Benadryl) 25 mg IVP ONCE ONE Stop: 03/29/18 19:17 Last Admin: 03/29/18 19:16 Dose: 25 mg IVP Administration Document 03/29/18 19:16 SS (Rec: 03/29/18 19:53 SS [id number]) Charges for Administration # of IVP Administrations 1 Famotidine (Pepcid 20mg/50ml Premix) 20 mg in 50 mls @ 100 mls/hr IVPB STAT STA Stop: 03/29/18 19:46 Last Admin: 03/29/18 19:18 Dose: 100 mls/hr eMAR Start Stop Document 03/29/18 19:18 SS (Rec: 03/29/18 19:54 SS [id number]) Intravenous Solution Start Date 03/29/18 Start Time 19:53 End Date 03/29/18 End time 20:23 Total Infusion Time 30 Methylprednisolone (Solu-Medrol) 125 mg IVP ONCE ONE Stop: 03/29/18 19:17 Last Admin: 03/29/18 19:16 Dose: 125 mg IVP Administration Document 03/29/18 19:16 SS (Rec: 03/29/18 19:53 SS [id number]) Charges for Administration # of IVP Administrations 1 - Scribe Statement The provider has reviewed the documentation as recorded by the Purnima Mascorro Provider Scribe Attestation: All medical record entries made by the Scribe were at my direction and personally dictated by me. I have reviewed the chart and agree that the record accurately reflects my personal performance of the history, physical exam, medical decision making, and the department course for this patient. I have also personally directed, reviewed, and agree with the discharge instructions and disposition. Disposition/Present on Arrival - Present on Arrival Any Indicators Present on Arrival: No History of DVT/PE: No History of Uncontrolled Diabetes: No Urinary Catheter: No History of Decub. Ulcer: No History Surgical Site Infection Following: None - Disposition Have Diagnosis and Disposition been Completed?: Yes Diagnosis: Allergic reaction Disposition: HOME/ ROUTINE Disposition Time: 21:35 Condition: IMPROVED Discharge Instructions (ExitCare): Angioedema Prescriptions: Epinephrine [Epipen] 0.3 mg IJ ONCE #1 auto.injct predniSONE [predniSONE Tab] 20 mg PO TID #15 tab Referrals: Margaret Patton, [Primary Care Provider] - Follow up with primary Forms: [employer] (Turkmen)
== END 2018-03-29 21:35 | disposition home or self-care (01) ==
LOC: ED 19:13
DX: T78.49XA Other allergy, initial encounter (principal); X58.XXXA Exposure to other specified factors, initial encounter
CPT/HCPCS: 96365; 96375; 99284; J1200; J2930

== ENCOUNTER 2018-12-04 12:02 | Outpatient (CLI) | payer MEDICARE | END 2018-12-04 12:03 | disposition home or self-care (01) | LOC: RAD 12:02 ==